=== PATIENT | male | born 1955 | race Caucasian/White ===

== ENCOUNTER 2022-08-22 08:48 | Emergency (ER) | payer MEDICARE, OTHER, SELFPAY ==
[2022-08-22 08:49] VITALS: BP 148/84; PULSE 45; RESP 18; TEMP 36.6; O2SAT 100; BMI 27.5
[2022-08-22 09:07] VITALS: BP 151/84; PULSE 48; RESP 11; O2SAT 100
--- NOTE | 2022-08-22 09:22 | RAD_ITS ---
HISTORY: chest pain. TECHNIQUE: XR Chest 1 View. COMPARISON: None. FINDINGS: CARDIOMEDIASTINAL BORDERS: Cardiac silhouette within normal limits in size. Mediastinal contour unremarkable. LUNGS: Small calcified granuloma in the right midlung. PLEURA: No pleural effusion or pneumothorax seen. OSSEOUS STRUCTURES: Right humeral head surgical anchors. RAD/Chest 1 View (Portable) IMPRESSION: No acute cardiopulmonary process identified. Electronically Signed: Alethea Foss MD at 10:07 EDT ,
[2022-08-22 09:28] VITALS: O2SAT 100
[2022-08-22 09:32] LABS: Absolute Lymphocyte Count 1.43 X10^3/uL (0.83-4.51); Absolute Neutrophil Count 1.7 X10^3/uL (2.0-7.7); Basophil# 0.02 X10^3/uL; Basophil% 0.5 % (0-1); Eosinophil# 0.13 X10^3/uL; Eosinophils% 3.5 % (0-5); Hematocrit 43.7 % (40-54); Hemoglobin 14.3 g/dL (13.0-16.5); Lymphocyte # 1.43 X10^3/ul (0.83-4.51); Lymphocyte % 38.8 % (19-41); Mean Corp Hgb Conc 32.7 g/dL (32-36); Mean Corpuscular Hgb 29.6 pg (27.0-32.0); Mean Corpuscular Volume 90.5 fL (80-94); Mean Platelet Vol. 9.9 fl (6.2-12.0); Monocyte# 0.41 X10^3/uL; Monocyte% 11.1 % (0-10); NRBC Flagged by Analyzer 0 % (0-5); Neutrophil % 46.1 % (47-70); Platelet Count 167 K/mm3 (150-450); RBC Distribution Width CV 12.9 % (11.6-14.6); RBC Distribution Width SD 42.6 fl (35.1-43.9); Red Blood Count 4.83 M/mm3 (4.6-6.2); White Blood Count 3.7 K/mm3 (4.4-11.0)
--- NOTE | 2022-08-22 09:35 | ED.VIS.DYS ---
HPI History of Present Illness Chief Complaint: Shortness of Breath Informant: patient and spouse/S.O. Onset/Context/Timing Onset: Days Context: gradual Timing: Intermittent Quality: Negative for Dyspnea on exertion, Orthopnea, PND or Wheezing Current Severity: Mild Maximum Severity: Mild Worsened by: Nothing Relieved by: Nothing Associated Symptoms Negative for cough Chest Pain: Positive for Intermittent, Dull and Pressure; Negative for None Narrative Narrative: 67-year-old male history of bradycardia and reflux. Since last 2 weeks he just has not felt well. He has had some shortness of breath is increased over the last 2 days. Symptom intermittent midsternal chest heaviness. Is not exertional. Mild dizziness. Denies any diaphoresis or nausea. No history of DVT or PE. No recent surgery or hospitalization. No leg pain or swelling. No hemoptysis. 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 No cardiac history besides bradycardia. PE Risk Factors: Positive for Recent travel; Negative for Cancer, OCP + Smoking + > 35, Prior DVT or PE, Recent immobilization or Recent surgery Prior similar symptoms: No Recent Illness/Hospitalization: No PFSH PFSH Medical History Bradycardia GERD (gastroesophageal reflux disease) Hernia Home Medications esomeprazole magnesium 40 mg capsule,delayed release (Nexium) 20 mg PO DAILY 04/20/13 [History Last Taken 06/21/13 10:00] levothyroxine 50 mcg tablet 50 mcg PO DAILY 06/15/13 [History Last Taken 06/21/13 06:00] Allergy/AdvReac Type Severity Reaction Status Date / Time No Known Allergies Allergy Verified 08/22/22 08:52 Surgical History H/O knee surgery Social History Smoking Status: Former smoker ROS ROS ED ROS Narrative Dyspnea. Chest pain. Review of Systems ROS Unobtainable: Denies due to encephalopathy Constitutional Constitutional ED: Denies chills or fever(s) Eyes Eyes: Denies blurry vision ENT ENT ED: Denies ear pain Cardiovascular Cardiovascular: Reports chest pain; Denies orthopnea, palpitations, paroxysmal nocturnal dyspnea or racing heartbeat Respiratory/Chest Respiratory/Chest: Reports dyspnea; Denies cough, dyspnea on exertion, orthopnea, paroxysmal nocturnal dyspnea or sputum Gastrointestinal Gastrointestinal: Denies abdominal pain, constipation, diarrhea, melena, nausea or vomiting Genitourinary Genitourinary ED: Denies dysuria or hematuria Musculoskeletal Musculoskeletal: Denies arthralgias Integumentary Denies abscess Neurologic Neurologic: Denies headache(s) Psychiatric Psychiatric: Denies anxiety Endocrine Endocrinology: Denies cold intolerance Hematologic/Lymphatic Hematologic/Lymphatic: Denies easy bleeding Allergic/Immunologic Allergic/Immunologic ED: Denies mouth swelling or tongue swelling EXAM Physical Exam Narrative Exam Narrative: Well-appearing 59-year-old male. Vital signs stable afebrile. Pulse ox 100% on room air no signs hypoxia. H EENT exam unremarkable. Moist extremities. Neck nontender no JVD. No lymphadenopathy. Lungs clear to auscultation bilaterally. Heart bradycardic rate about 45 no murmur. Chest wall nontender. Patient is a history of bradycardia. Abdomen soft nontender normal bowel sounds no peritoneal signs. Moving all 4 extremities. Calves are nontender that edema or cords. Both upper and lower extremities neurovascular intact. Back nontender. Neurologically is awake alert with no focal motor deficits. Const Vital Signs: 08/22/22 08:49 08/22/22 09:07 08/22/22 09:07 Temperature 97.9 F Temperature Source Temporal Pulse Rate 45 L 48 L Respiratory Rate 18 11 L Respiratory Effort Normal Non-Labored Respiratory Pattern Normal Blood Pressure 148/84 H 151/84 H Blood Pressure Mean 105 106 Pulse Ox 100 100 Oxygen Delivery Method Room Air Room Air Room Air 08/22/22 09:28 08/22/22 09:39 Temperature Temperature Source Pulse Rate 41 L Respiratory Rate 16 Respiratory Effort Respiratory Pattern Blood Pressure 129/73 H Blood Pressure Mean 91 Pulse Ox 100 99 Oxygen Delivery Method Room Air Room Air Positive well nourished and well developed; Negative for obese, cachectic, contractures or unkempt General Appearance ED: well developed and NAD; Negative for unkempt, cachectic, contractures or pallor Nutritional Appearance: Negative for cachectic or obese HEENT Reports moist mucous membranes; Denies dry mucous membranes atraumatic; Negative for trauma or tenderness Mouth ED: No dry mucous membranes Mouth: No dry mucous membranes Eyes PERRL and EOMs intact bilaterally General Eye ED: Negative for pale conjunctiva or scleral icterus Neck no lymphadenopathy, supple, no meningeal signs and no JVD General: Negative for tenderness Lymph Lymphatic: Negative for other Chest Wall Chest: Negative for other Resp normal respiratory effort and clear to auscultation bilaterally Effort and Inspection: Negative for pain with movement Auscultation: Negative for rales, rhonchi, wheezes or diminished lung sounds Cardio regular rhythm, S1 normal heart sound and S2 normal heart sound; Negative for regular rate Rate: bradycardia; Negative for tachycardic Rhythm: Negative for abnormal rhythm GI non-tender, non-distended and no masses Inspection: Negative for other Auscultation: normoactive bowel sounds Palpation: soft; Negative for tender or guarding Back/Spine no CVA tenderness and normal to inspection General Back: CVA tenderness Extremity normal to inspection General Extremety ED: Negative for edema or tenderness General Extremity: Negative for edema Neuro oriented x3 and CN's II-XII intact bilaterally Sensorium / Orientation: alert, oriented to person, oriented to place and oriented to time; Negative for orientation impaired, confused or lethargic Speech: speech normal Motor Exam: strength 5/5 throughout Psych mental status grossly normal Appearance: Negative for unkempt Attitude: No agitated Mood & Affect: Negative for depressed, anxious or tearful Thought Process: normal thought process Skin no wounds General Skin Exam: Negative for jaundice or pallor Lesions: no lesions Rashes: no rashes Trauma: Negative for abrasion or laceration MDM MDM MDM Narrative Medical decision making narrative: 67-year-old male has not felt well for 1 to 2 weeks. Complaint shortness of breath and chest discomfort that is intermittent and not exertional. He does drive truck sometimes long-haul so D-dimer will be obtained along with a cardiac work-up. Exam is benign. Repeat exam patient is doing well at 10:40 AM. Exam unchanged. We went over all his test results. Given that he has risks with his long distance matthew and elevated D-dimer that we will do a CTA of his chest. Otherwise his blood work is unremarkable. If the CTA is negative will be discharged to home. I discussed all this with he and his . Repeat exam doing well at 11:50 AM. He and his went over all his test. He will be discharged home with outpatient follow-up with primary care physician. He had a normal stress test done years ago I told him discussed with his primary care physician about possible repeat stress testing due to his atypical nonexertional chest pain. History & Record Review Discussion w/independent historian: Patient Additional record(s) reviewed:: Prior inpatient record, Prior outpatient record, Prior ED visit and Prior labs Lab Data Attestation: I reviewed the patient's lab results. Lab results narrative: CBC normal. White count 3.7. H&H 14 and 43. Platelets 167. Electrolytes unremarkable. Gap of 3. Normal BUN and creatinine of 1. Glucose 89. Troponin normal at 11. D-dimer is elevated 0.82. CTA of the chest shows no acute abnormality. No PE as read by the radiologist. Reviewed by me. Labs: Laboratory Results - last 24 hr 08/22/22 08/22/22 08/22/22 09:00 09:00 09:00 WBC 3.7 L RBC 4.83 Hgb 14.3 Hct 43.7 MCV 90.5 MCH 29.6 MCHC 32.7 RDW Std Deviation 42.6 RDW Coeff of Cecil 12.9 Plt Count 167 MPV 9.9 Immature Gran % (Auto) 0.000 Neut % (Auto) 46.1 L Lymph % (Auto) 38.8 Phillips % (Auto) 11.1 H Eos % (Auto) 3.5 Baso % (Auto) 0.5 Absolute Neuts (auto) 1.7 L Absolute Lymphs (auto) 1.43 Nucleated RBC % 0 D-Dimer Quant (PE/DVT) 0.82 H* Sodium 139 Potassium 3.8 Chloride 108 H Carbon Dioxide 28.0 Anion Gap 3 L BUN 18 Creatinine 1.00 Estim Creat Clear Calc 73.00 Est GFR (MDRD) Af Amer 96 Est GFR (MDRD) Non-Af 79 BUN/Creatinine Ratio 18.0 Glucose 89 Calcium 9.3 Troponin I High Sens 11 Radiography Chest X-Ray - ED: 1 View, Read by ED Physician, Heart, Lungs, Mediastinum, Bony Structures, No Acute Disease and Chronic Changes Diagnostic Testing: Clinical Impression(s) from Imaging Studies Chest X-Ray 08/22/22 09:22 IMPRESSION: No acute cardiopulmonary process identified. Electronically Signed: Alethea Foss MD at 10:07 EDT Reading Location ID and State: [facility] / [place] Tel , Service support , Chest CTA 08/22/22 10:40 IMPRESSION: No evidence of pulmonary embolism. Electronically Signed: Alethea Foss MD at 11:42 EDT , Chest x-ray, portable, single view interpreted both by myself and radiologist shows no acute abnormality. Normal cardiac silhouette. No effusions. No failure or infiltrates. Rhythm Strip Rhythm Strip: Sinus bradycardia Rate: 45 Ectopy: None EKG Initial EKG: Interpretation: Sinus Rhythm, No Acute Injury Pattern and Sinus Bradycardia Comments: Sinus bradycardia rate of 45 no acute signs of [place] or ischemia. Patient has a history of sinus bradycardia. Differential Diagnosis Chest pain/SOB: pulmonary embolism, ACS, pneumothorax and pneumonia Discharge Plan Triage Chief Complaint: Shortness of Breath ED Provider: Gian Alvarado Dx/Rx/DC Orders Clinical Impression: Chest pain, History of bradycardia Instructions: ED Chest Pain, Uncertain Cause Prescriptions: No Action esomeprazole magnesium [Nexium] 40 MG capsule 20 mg PO DAILY levothyroxine 50 MCG tablet 50 mcg PO DAILY Primary Care Provider: Fam Tate Referrals: Fam Tate MD [Primary Care Provider] - As soon as possible Activity Restrictions/Additional Instructions: Your test were normal today. No blood clot. No signs of heart attack. Follow-up with your primary care physician and Tuesday a good idea to do outpatient stress testing just to make sure there is no type of cardiac issue. Return if you are feeling worse but otherwise this can be followed up as an outpatient. Disposition Disposition: Home, Self Care
[2022-08-22 09:39] VITALS: BP 129/73; PULSE 41; RESP 16; O2SAT 99
[2022-08-22 09:50] LABS: Anion Gap 3 (5-15); BUN 18 mg/dL (7-18); Calcium,Total 9.3 mg/dL (8.5-10.1); Chloride 108 mmol/L (98-107); EST Glomerular Filtration Rate 79 mL/min (>60); Est Glom Filt Rate - Afr Amer 96 mL/min (>60); Glucose 89 mg/dL (74-106); Potassium 3.8 mmol/L (3.5-5.1); Sodium Level 139 mmol/L (136-145); Troponin-I HS 11 pg/mL (3.0-78.0)
[2022-08-22 10:17] LABS: D-Dimer Quantitative (DVT/PE) 0.82 FEU/ug/m (0.27-0.49)
--- NOTE | 2022-08-22 10:40 | CT_ITS ---
HISTORY: chest pain. TECHNIQUE: CT angiogram of the chest was performed after the intravenous administration of 100 mL Isovue 370. Post-processing of the angiographic images was performed with multiplanar reformation and 3D reconstruction. Individualized dose optimization techniques were used for this CT. 1208 images. COMPARISON: XR same day. FINDINGS: CENTRAL AIRWAYS: Patent. LUNGS: Very mild emphysema. Mild right lower lobe scarring or atelectasis posteriorly and medially. Calcified left lower lobe granuloma. PLEURA: No pneumothorax or significant pleural effusion. HEART/PERICARDIUM: Heart within normal limits in size with coronary artery disease noted. No pericardial effusion. PULMONARY ARTERIES: No filling defect. AORTA/VESSELS: Thoracic aorta nondilated. MEDIASTINUM/SHELTON: No pathologically enlarged lymph nodes. Small calcified left hilar lymph nodes. Right fat-containing Bochdalek hernia. OSSEOUS STRUCTURES: Surgical anchors in the right humeral head. Degenerative change. UPPER ABDOMEN: Calcified splenic granulomas. CT/CTA Chest W/WO Contrast IMPRESSION: No evidence of pulmonary embolism. Electronically Signed: Alethea Foss MD at 11:42 EDT ,
== END 2022-08-22 12:01 | disposition home or self-care (01) ==
PROVIDERS: Emergency Provider Emergency Medicine; PCP Family Medicine; Visit Provider Emergency Medicine
DX: R07.9 Chest pain, unspecified (principal); Z79.899 Other long term (current) drug therapy; Z87.891 Personal history of nicotine dependence
CPT/HCPCS: 71045; 71275; 80048; 84484; 85025; 85379; 93005; 99284; Q9967; A4216